=== PATIENT | male | born 1980 | race Caucasian/White ===

== ENCOUNTER 2017-06-27 11:18 | Emergency (ER) | payer BC ==
[2017-06-27 11:32] VITALS: BP 127/66
--- NOTE | 2017-06-27 11:38 | EDM.PDOC ---
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 States that the skin came apart and it was bleeding. He immediately came to the ER without looking at it well. No further bleeding when he arrived here. Onset: Today Location: Reports: Upper Extremity, Left Left Arm Pain Score (Numeric/FACES): 1 - Related Data Allergies Allergy/AdvReac Type Severity Reaction Status Date / Time No Known Allergies Allergy Verified 06/27/17 11:32 Home Meds: Home Meds . [No Known Home Meds] 06/27/17 [History] ED ROS GENERAL - Review of Systems Review Of Systems: See Below Skin: Reports: Wound (left forearm) ED EXAM, SKIN/RASH Exam: See Below Exam Limited By: No Limitations General Appearance: Alert, WD/WN, No Apparent Distress Skin: Wound/Incision (Has a very superficial laceration that was 2.5 cm in length. edges approximately easily and steri strips were applied. No further bleeding noted.) Course - Vital Signs Last Recorded V/S: Last Vital Signs Temp 97.6 F 06/27/17 11:25 Pulse 46 L 06/27/17 11:25 Resp 16 06/27/17 11:25 BP 127/66 06/27/17 11:25 Pulse Ox 99 06/27/17 11:25 Departure - Departure Time of Disposition: 11:35 Disposition: Home, Self-Care 01 Condition: Good Clinical Impression: Superficial laceration - Discharge Information Instructions: Laceration Care, Adult, [id number] Forms: ED Department Discharge Additional Instructions: keep clean and dry recheck if any new concerns noted. - Problem List & Annotations (1) Superficial laceration SNOMED Code(s): 934275238 Code(s): T14.8 - OTHER INJURY OF UNSPECIFIED BODY REGION Status: Acute Priority: High Current Visit: Yes - Problem List Review Problem List Initiated/Reviewed/Updated: Yes - Assessment/Plan Plan: Follow up as needed
== END 2017-06-27 11:45 | disposition home or self-care (01) ==
LOC: CC.ED 11:18
DX: S51.812A Laceration without foreign body of left forearm, initial encounter (principal); X58.XXXA Exposure to other specified factors, initial encounter; Y93.89 Activity, other specified; Y99.0 Civilian activity done for income or pay
CPT/HCPCS: 99282